=== PATIENT | female | born 1980 | race Caucasian/White ===

== ENCOUNTER 2019-07-06 08:39 | Emergency (ER) | payer MEDICAID ==
[~2019-07-06] VITALS: Ht 162.6 cm; Wt 72.5 kg
[~2019-07-06 08:39] MED LIST: CYAN1TAB41 PO; DEXL60CA3 PO; LIDO20SO16 PO
[2019-07-06 08:50] VITALS: BP 125/69
== END 2019-07-06 10:11 | disposition home or self-care (01) ==
LOC: ER 08:40
DX: S93.692A Other sprain of left foot, initial encounter (principal); Z90.49 Acquired absence of other specified parts of digestive tract; Z56.0 Unemployment, unspecified; Z88.1 Allergy status to other antibiotic agents; Z88.6 Allergy status to analgesic agent; Z79.899 Other long term (current) drug therapy; W22.03XA Walked into furniture, initial encounter; Y93.89 Activity, other specified; Y92.89 Other specified places as the place of occurrence of the external cause; Y99.8 Other external cause status
CPT/HCPCS: 73630; 99283

== ENCOUNTER 2024-08-19 13:10 | Emergency (ER) | payer MEDICAID ==
[~2024-08-19] VITALS: Ht 160 cm; Wt 59.6 kg
[2024-08-19] MEDS: ketorolac trometh 30MG/ML vial 30 MG/ML VIAL IM ONE (15:39)
[2024-08-19] MEDS: cyclobenzaprine 10mg tablet PO ONE (15:39)
[2024-08-19] MEDS: dexamethasone sod phosphate 10mg/ml inj IM STA (15:40)
[2024-08-19] MEDS ORDERED: LIDO700A32 TOP (15:50)
[2024-08-19] MEDS ORDERED: CYCL-1 PO (15:50)
[2024-08-19 15:59] VITALS: BP 114/68; PULSE 74; RESP 14; O2SAT 99
== END 2024-08-19 15:57 | disposition home or self-care (01) ==
LOC: ER 13:11
DX: S39.012A Strain of muscle, fascia and tendon of lower back, initial encounter (principal); Z88.1 Allergy status to other antibiotic agents; Z88.5 Allergy status to narcotic agent; Z88.6 Allergy status to analgesic agent; Z90.49 Acquired absence of other specified parts of digestive tract; X58.XXXA Exposure to other specified factors, initial encounter; Y93.89 Activity, other specified; Y92.89 Other specified places as the place of occurrence of the external cause; Y99.8 Other external cause status
CPT/HCPCS: 72100; 96372; 99284; J1100; J1885